=== PATIENT | male | born 1960 | race Caucasian/White ===

== ENCOUNTER 2021-06-30 09:33 | Emergency (ER) | payer MEDICAID ==
[2021-06-30] MEDS ORDERED: Ibuprofen 800 MG Tab PO ONE (09:44)
[2021-06-30 09:52] VITALS: BP 165/88; PULSE 64
[2021-06-30] MEDS ORDERED: Ibuprofen 800 MG Tab ONE (09:58)
--- NOTE | 2021-06-30 10:28 | EDM.PDOC ---
ED HPI GENERAL MEDICAL PROBLEM - General Chief Complaint: Back Pain or Injury Stated Complaint: BROKEN RIB? Time Seen by Provider: 06/30/21 09:35 - History of Present Illness INITIAL COMMENTS - FREE TEXT/NARRATIVE: This patient presents to the emergency department as he broke his rib. He states he fell backwards about a week ago in his home landing on the corner of a coffee table. He states since that time he has not had a lot of pain and there was no swelling or bruising. This morning he states he rolled over in bed and had sudden and excruciating pain in the same area. He denies any numbness or tingling. He denies any weakness of his extremities. He denies any incontinence of bowel or bladder. He has had no recent illnesses or surgeries. - Related Data Allergies Allergy/AdvReac Type Severity Reaction Status Date / Time No Known Allergies Allergy Verified 06/30/21 09:43 Home Meds: Home Meds hydroCHLOROthiazide [Hydrochlorothiazide] 25 mg PO DAILY 06/15/15 [History] lisinopriL [Lisinopril] 10 mg PO DAILY 06/30/21 [History] valACYclovir HCl [Valacyclovir] 1,000 mg PO DAILY 06/30/21 [History] Past Medical History - Past Health History Medical/Surgical History: Denies Medical/Surgical History HEENT History: Reports: Other (See Below) Other HEENT History: shingles in eye Cardiovascular History: Reports: Hypertension Genitourinary History: Reports: Renal Calculus Musculoskeletal History: Reports: Other (See Below) Other Musculoskeletal History: broken wrist Social & Family History - Alcohol Use Days Per Week of Alcohol Use: 7 Number of Drinks Per Day: 3 Total Drinks Per Week: 21 - Recreational Drug Use Recreational Drug Use: Yes Recreational Drug Type: Reports: Marijuana/Hashish ED ROS GENERAL - Review of Systems Review Of Systems: Comprehensive ROS is negative, except as noted in HPI. ED EXAM,LOWER BACK PAIN/INJURY - Physical Exam Exam: See Below Exam Limited By: No Limitations General Appearance: Alert, WD/WN, No Apparent Distress Eye Exam: Bilateral Eye: PERRL Ears: Normal External Exam Throat/Mouth: Normal Inspection Head: Atraumatic, Normocephalic Neck: Normal Inspection, Non-Tender, Full Range of Motion Respiratory/Chest: No Respiratory Distress, No Accessory Muscle Use Back Exam: Normal Inspection, Decreased Range of Motion (Related to pain), Muscle Spasm (Occasional), Other (There is no swelling, discoloration or deformity noted.) Extremities: Normal Inspection Neurological: Alert, Normal Mood/Affect Course - Vital Signs Last Recorded V/S: Last Vital Signs Temp 36.9 C 06/30/21 09:50 Pulse 64 06/30/21 09:50 Resp 18 06/30/21 09:50 BP 165/88 H 06/30/21 09:50 Pulse Ox 99 06/30/21 09:50 - Orders/Labs/Meds Orders: Active Orders 24 hr Category Date Time Status Chest 2V [CR] Stat Exams 06/30/21 09:43 Taken Meds: Medications Discontinued Medications Generic Name Dose Route Start Last Admin Trade Name Edison PRN Reason Stop Dose Admin Ibuprofen 800 mg 06/30/21 09:44 06/30/21 09:48 Ibuprofen 800 Mg Tab PO 06/30/21 09:45 800 mg ONETIME ONE Administration Ibuprofen Confirm 06/30/21 09:58 Ibuprofen 800 Mg Tab Administered 06/30/21 09:59 Dose 800 mg .ROUTE .STK-MED ONE - Re-Assessments/Exams Free Text/Narrative Re-Assessment/Exam: 06/30/21 10:32 This patient presents for evaluation of upper back pain. Based on his history and exam this is most consistent with back pain of a musculoskeletal etiology. The pain is radicular in nature and there is nothing on exam to indicate it is a referred pain from the chest or of a cardiac or pulmonary etiology. X-ray confirms there are no rib fractures. There are no red flag symptoms to suggest there is an acute neurologic emergency, acute spinal cord or nerve root compre ssion, or other acute nerve injury to indicate he needs an emergent MRI. I do not suspect referred pain from intra-abdominal or urologic process. Patient was provided with pain control and did state that ibuprofen was helping. He was given prescriptions for Flexeril and Naprosyn. He was instructed to follow-up with his primary care provider in about a week if he is not better, sooner if he is worse in any way. The patient was stable at the time of discharge. Departure - Departure Time of Disposition: 10:30 Disposition: Home, Self-Care 01 Condition: Good Clinical Impression: Back pain - Discharge Information *PRESCRIPTION DRUG MONITORING PROGRAM REVIEWED*: No *COPY OF PRESCRIPTION DRUG MONITORING REPORT IN PATIENT NICOLÁS: No Instructions: Muscle Strain, [id number] Referrals: Izaiah Peng MD [Primary Care Provider] - Forms: ED Department Discharge Care Plan Goals: Take Naprosyn 500mg twice daily and Flexeril 10mg every 6-8 hrs as needed. Sepsis Event Note (ED) - Evaluation Sepsis Screening Result: No Definite Risk - Focused Exam Vital Signs: Vital Signs Temp Pulse Resp BP Pulse Ox 06/30/21 09:50 36.9 C 64 18 165/88 H 99 - My Orders Last 24 Hours: My Active Orders 06/30/21 09:43 Chest 2V [CR] Stat - Assessment/Plan Last 24 Hours: My Active Orders 06/30/21 09:43 Chest 2V [CR] Stat
--- NOTE | 2021-06-30 13:00 | CR ---
DATE OF SERVICE: 06/30/21 CLINICAL DATA: back pain-focus posterior ribs PA AND LATERAL CHEST: No priors. The heart size is normal. The lungs are clear. No pneumothorax. No pleural effusions. There is degenerative disc disease throughout the thoracic spine. There is anterior wedging of a couple of mid thoracic vertebra, age indeterminate. No other significant findings. [id number] [facility]
== END 2021-06-30 10:29 | disposition home or self-care (01) ==
LOC: LB.ED 09:33
DX: M54.6 Pain in thoracic spine (principal); Z79.899 Other long term (current) drug therapy
CPT/HCPCS: 71046; 99283; A9270

== ENCOUNTER 2024-12-13 13:13 | Emergency (ER) | payer MEDICAID ==
[2024-12-13 13:34] VITALS: BP 145/91; PULSE 69
== END 2024-12-13 13:45 | disposition home or self-care (01) ==
LOC: LB.ED 13:13
DX: L23.7 Allergic contact dermatitis due to plants, except food (principal); I10 Essential (primary) hypertension; E78.00 Pure hypercholesterolemia, unspecified; Z87.891 Personal history of nicotine dependence; Z79.899 Other long term (current) drug therapy
CPT/HCPCS: 99282

== ENCOUNTER 2025-01-22 10:52 | Emergency (ER) | payer MEDICAID ==
[2025-01-22] MEDS ORDERED: Sodium Chloride 0.9% 10 ML Syringe FLUSH PRN (11:11)
[2025-01-22] MEDS: Morphine 4 MG/ML VIAL IVPUSH ONE (11:20)
[2025-01-22] MEDS: ceFAZolin 1 GM Vial IVPUSH ONE (11:29)
[2025-01-22] MEDS: Lidocaine 1% 5 ML VIAL INJECT ONE (11:35)
[2025-01-22] MEDS: Bacitracin Oint 1 GM U/D Packet TOP ONE (12:10)
[2025-01-22] MEDS: Diphtheria,Pertussis(Acell),Tetanus Vaccine 0.5 ML Syringe IM ONE (12:17)
[2025-01-22 12:41] VITALS: BP 112/69; PULSE 53
== END 2025-01-22 12:30 | disposition home or self-care (01) ==
LOC: LB.ED 10:52
DX: S61.441A Puncture wound with foreign body of right hand, initial encounter (principal); I10 Essential (primary) hypertension; E78.00 Pure hypercholesterolemia, unspecified; Z79.899 Other long term (current) drug therapy; Z23 Encounter for immunization; W45.0XXA Nail entering through skin, initial encounter
CPT/HCPCS: 73120; 73130; 90471; 90715; 96374; 96375; 99283; J0690; J2003; J2270